=== PATIENT | female | born 1965 | race Caucasian/White ===

== ENCOUNTER 2017-08-22 15:39 | Emergency (ER) | payer OTHER ==
--- NOTE | 2017-08-22 15:53 | EDPHY ---
H & P HPI/ROS: CHIEF COMPLAINT: Chest pain and difficulty breathing HISTORY OF PRESENT ILLNESS: The patient is a 52 y/o female with a history of bradycardia and pulmonary hypertension arriving via her own vehicle complaining of chest pain and difficulty breathing onset , one day ago. she woke up and felt "not quite right but not sure why". Later in the day she noticed pain in the center of her chest and difficulty breathing. Today the symptoms worsened, prompting her to come to the ED. Initially she thought she was developing the flu. She notes that the symptoms are intermittent and worsen with exertion. She denies any recent illness, cough, fever, or trauma. She denies a history of hypertension, high cholesterol, known CAD, or diabetes. She notes she frequently has edema bilaterally in her legs. REVIEW OF SYSTEMS: A ten point review of systems was performed and is negative with the exception of the items mentioned in the HPI. Past medical history: 1. Bradycardia 2. Pulmonary hypertension Past surgical history: Denies Family history: Non-contributory Social history: , non-smoker, infrequent alcohol use, works in [employer] for [employer] General Appearance: Alert. Vital signs reviewed. Blood pressure 136/84 at triage. Eyes: Pupils equal and round, no conjunctival injection, no discharge. Anicteric. ENT, Mouth: Mucous membranes are moist, no oropharyngeal erythema or edema. Neck: No lymphadenopathy, supple. No jugular venous distention. Respiratory: Lungs are clear to auscultation; no wheezes, rales, or rhonchi. Cardiovascular: Bradycardia; no murmur, rub, or gallop. Gastrointestinal: Abdomen is soft and nontender, no masses or organomegaly, bowel sounds normal. Skin: Warm and dry, no rashes on exposed skin, normal color. Back: Nontender to palpation over the thoracolumbar spine. No CVAT. Extremities: Trace bilateral edema, no calf tenderness or swelling. Neurological: Alert and oriented. Moving all four extremities easily and equally. Psychiatric: Normal affect. - Medical/Surgical History Other PMH: polyp removal - Social History Smoking Status: Never smoked Constitutional: Initial Vital Signs Temperature (C) 37 C 08/22/17 15:50 Heart Rate 60 08/22/17 15:50 Respiratory Rate 14 08/22/17 15:50 Blood Pressure 136/84 H 08/22/17 15:50 O2 Sat (%) 99 08/22/17 15:50 O2 Delivery Mode Room Air Allergies/Adverse Reactions: Penicillins Allergy (Verified 04/08/10 12:55) Home Medications: Medication Instructions Recorded Hormone Replacement Tx 02/02/15 Medical Decision Making - Diagnostics EKG Interpretation: The 12 lead EKG was interpreted by myself. Bradycardia. See hard copy and/or "tracemaster" electronic copy for interpretation. Imaging: Discussed imaging studies w/ bag loader machine operator Radiologist, I viewed and interpreted images myself ED Course/Re-evaluation: The patient is a 52 y/o female with a history of bradycardia and pulmonary hypertension complaining of chest pain and difficulty breathing onset yesterday. She states her symptoms are intermittent and worsen with exertion. She received aspirin shortly after arrival in the emergency department. EKG shows sinus bradycardia with a rate of 55. No acute ischemic changes. Blood work including CBC, chemistries, troponin, and D-dimer is normal/ negative. Given that she has been experiencing this pain since yesterday, I would expect her troponin to be elevated if this pain is related to myocardial ischemia. Chest x-ray does not show evidence of an infiltrate. I do not suspect pulmonary infection. It does show possible airways disease. She is not wheezing and has no history of reactive airways. Given that her pain seems to be exertional, I remain concerned about the possibility of it being cardiac in etiology. We discussed hospitalization for further evaluation, including serial troponin. We discussed her HEART score and her calculated % risk of major cardiac event within six weeks. We also discussed the possibility of this being gastrointestinal--specifically GERD. I am recommending antacids. I recommend close follow-up by her primary care physician. Differential Diagnosis: Chest pain including but not limited to myocardial ischemia, pulmonary embolus, chest wall pain, pleural inflammation and pulmonary infectious causes. - Data Points Laboratory Results: Laboratory Results 08/22/17 16:00 08/22/17 16:00 Medications Given: Discontinued Medications Aspirin (Aspirin) 324 mg PO EDNOW ONE Stop: 08/22/17 16:05 Last Admin: 08/22/17 16:08 Dose: 324 mg Departure - Departure Disposition: Home, Routine, Self-Care Clinical Impression: Chest pain in adult Condition: Good Instructions: Chest Pain (ED) Additional Instructions: 1. Follow up with your primary care provider for unimproved symptoms. 2. Continue taking tums and ranitidine as directed. 3. Return for pain in one arm, trouble speaking, or any other worsening of condition. Referrals: Rose Mcgovern MD [Primary Care Provider] - As per Instructions Report Scribed for: Venus Oakes Report Scribed by: Haley Montgomery Date of Report: 08/22/17 Time of Report: 17:14 Physician Review and Approval Statement: 08/22/17 15:53 Portions of this note were transcribed by the medical clinic manager. I, Dr. Venus Oakes, personally performed the history, physical exam, and medical decision- making; and confirmed the accuracy of the information in the transcribed note.
[2017-08-22 15:55] VITALS: RESP 14
--- NOTE | 2017-08-22 15:57 | CPEKG ---
Heart Rate: 55 RR Interval: 1091 P-R Interval: 140 QRSD Interval: 82 QT Interval: 440 QTC Interval: 421 P [place]: 56 QRS [place]: 54 T Wave [place]: 23 EKG Severity - NORMAL ECG - EKG Impression: SINUS RHYTHM Electronically Signed By: Venus Oakes 22-Aug-2017 22:05:54
[2017-08-22] MEDS ORDERED: ASPIRIN 81 MG CHEWABLE TAB ONE (16:05)
[2017-08-22] MEDS: ASPIRIN 81 MG CHEWABLE TAB PO ONE ×2 (16:07→16:08)
[2017-08-22 16:20] LABS: % IMMATURE GRANULYOCYTES 0.4 % (0.0-1.1); ABSOLUTE IMMATURE GRANULOCYTES 0.04 10^3/uL (0.00-0.10); ADD DIFF? NO; ADD MORPH? NO; ADD SCAN? NO; ATYPICAL LYMPHOCYTE FLAG 0 (0-99); FRAGMENT RBC FLAG 0 (0-99); HEMATOCRIT 39.2 % (38.0-47.0); HEMOGLOBIN 13.1 g/dL (12.6-16.3); LEFT SHIFT FLG 0 (0-99); LIPEMIA HEMOLYSIS FLAG 80 (0-99); MEAN CELL HEMOGLOBIN CONCENTR. 33.4 g/dL (32.4-36.7); MEAN CELL VOLUME 89.7 fL (81.5-99.8); MEAN PLATELET VOLUME 11.5 fL (8.7-11.7); PLATELET CLUMPS FLAG 10 (0-99); PLATELET COUNT 202 10^3/uL (150-400); RED BLOOD CELL COUNT 4.37 10^6/uL (4.18-5.33); RED CELL DISTRIBUTION WIDTH 13.2 % (11.5-15.2)
[2017-08-22 16:21] LABS: ANION GAP 11 mEq/L (8-16); CALCIUM 9.7 mg/dL (8.5-10.4); CARBON DIOXIDE 23 mEq/l (22-31); CHLORIDE 103 mEq/L (97-110); CREATININE 0.7 mg/dL (0.6-1.0); GLOMERULAR FILTRATION RATE > 60; GLUCOSE 92 mg/dL (70-100); POTASSIUM 3.7 mEq/L (3.5-5.2); SODIUM 137 mEq/L (134-144)
[2017-08-22 16:32] LABS: TROPONIN I < 0.012 ng/mL (0.000-0.034)
[2017-08-22 17:23] VITALS: BP 132/78; PULSE 57; O2SAT 97
[2017-08-22 17:32] VITALS: TEMP 97.7
== END 2017-08-22 17:40 | disposition home or self-care (01) ==
DX: R07.9 Chest pain, unspecified (principal)